=== PATIENT | female | born 1965 | race Caucasian/White ===

== ENCOUNTER 2025-03-05 09:51 | Emergency (ER) | payer BC ==
[2025-03-05] MEDS ORDERED: LEVO1TAB39 PO (11:56)
[2025-03-05] MEDS ORDERED: METR-265 PO (11:56)
[2025-03-05] MEDS ORDERED: ONDA-282 PO (11:56)
[2025-03-05] MEDS ORDERED: CEPH500C PO (11:56)
[2025-03-05] MEDS: TETANUS/DIPHTH/ACEL. PERTUSSIS 0.5 ML SYR IM.IMMUN ONE (12:00)
[2025-03-05] MEDS: KETOROLAC 60 MG/2 ML VIAL IM ONE (12:19)
[2025-03-05] MEDS: CEPHALEXIN 500 MG CAP PO ONE (14:22)
[2025-03-05] MEDS: ONDANSETRON 4MG TAB PO ONE (14:34)
[2025-03-05 14:35] VITALS: BP 151/78; TEMP 98.1; O2SAT 99
== END 2025-03-05 14:40 | disposition home or self-care (01) ==
LOC: M ED 09:51
DX: S00.511A Abrasion of lip, initial encounter (principal); Y92.9 Unspecified place or not applicable; Y93.9 Activity, unspecified; Y99.9 Unspecified external cause status; W01.10XA Fall on same level from slipping, tripping and stumbling with subsequent striking against unspecified object, initial encounter; I10 Essential (primary) hypertension; E78.5 Hyperlipidemia, unspecified; F10.10 Alcohol abuse, uncomplicated; Z23 Encounter for immunization; Z79.2 Long term (current) use of antibiotics; Z79.899 Other long term (current) drug therapy
CPT/HCPCS: 70486; 90471; 90715; 96372; 99283; J1885